=== PATIENT | male | born 1945 | race Caucasian/White ===

== ENCOUNTER 2021-04-27 12:00 | Emergency (ER) | payer MEDICARE ==
[~2021-04-27] VITALS: Ht 170.2 cm; Wt 84.1 kg
[2021-04-27] MEDS ORDERED: SODIUM CHLORIDE 0.9% 1000ML 1,000 ML IV STA (12:31)
[2021-04-27] MEDS ORDERED: ONDANSETRON ODT4 MG PO (12:37)
[2021-04-27] MEDS ORDERED: MAALOX MAXIMUM355 ML PO (12:37)
[2021-04-27] MEDS ORDERED: FAMOTIDINE20 MG PO (12:37)
[2021-04-27] MEDS ORDERED: KETOROLAC TROMETHAMINE 30 MG/ML VIAL IV ONE (12:45)
[2021-04-27] MEDS ORDERED: ONDANSETRON HCL INJ 2MG/ML 2ML 2 MG/ML VIAL IV ONE (12:45)
[2021-04-27] MEDS ORDERED: FAMOTIDINE 20 MG/2 ML VIAL IV ONE (12:45)
[2021-04-27] MEDS ORDERED: SODIUM CHLORIDE 0.9% 1000ML 1,000 ML ONE (12:57)
== END 2021-04-27 16:21 | disposition home or self-care (01) ==
LOC: FSED 12:07
DX: R11.2 Nausea with vomiting, unspecified (principal); K52.9 Noninfective gastroenteritis and colitis, unspecified; R10.13 Epigastric pain; I10 Essential (primary) hypertension
CPT/HCPCS: 80053; 85025; 96374; 96375; 99284; J1885; J2405; J7030